=== PATIENT | male | born 1935 | race Caucasian/White ===

== ENCOUNTER 2021-11-29 09:28 | Outpatient (CLI) | payer MEDICARE, BC, SELFPAY | END 2021-11-29 09:29 | disposition home or self-care (01) | LOC: WOUND 09:32 | PROVIDERS: PCP Family Medicine; Visit Provider Nurse Practitioner Family | DX: E11.622 Type 2 diabetes mellitus with other skin ulcer (principal); M86.68 Other chronic osteomyelitis, other site; L89.154 Pressure ulcer of sacral region, stage 4; C50.322 Malignant neoplasm of lower-inner quadrant of left male breast; L98.9 Disorder of the skin and subcutaneous tissue, unspecified; Z79.4 Long term (current) use of insulin; Z85.51 Personal history of malignant neoplasm of bladder; L97.511 Non-pressure chronic ulcer of other part of right foot limited to breakdown of skin; L97.521 Non-pressure chronic ulcer of other part of left foot limited to breakdown of skin | CPT/HCPCS: 11043; 11104; 88305; 99204 ==